=== PATIENT | female | born 2000 | race Caucasian/White ===

== ENCOUNTER 2019-04-10 13:27 | Emergency (ER) | payer OTHER ==
[~2019-04-10] VITALS: Ht 165.1 cm; Wt 56.8 kg
[2019-04-10 13:30] VITALS: TEMP 97.7
[2019-04-10] MEDS ORDERED: PROZAC 10MG10 MG (13:34)
[2019-04-10] MEDS ORDERED: BIRTH CONTROL (13:35)
[2019-04-10 14:47] VITALS: BP 116/82; PULSE 70
== END 2019-04-10 14:47 | disposition home or self-care (01) ==
LOC: COL.ER 13:27
DX: S29.012A Strain of muscle and tendon of back wall of thorax, initial encounter (principal); V78.5XXA Driver of bus injured in noncollision transport accident in traffic accident, initial encounter